=== PATIENT | female | born 1990 | race Two or more races ===

== ENCOUNTER 2019-08-18 17:13 | Observation (INO) | payer MEDICAID ==
[~2019-08-18] VITALS: Ht 160 cm; Wt 95.7 kg
[2019-08-18 17:49] VITALS: BP 140/83
[2019-08-18 18:45] LABS: BASOPHILS % (AUTO) 0.8 % (0.0-2.0); EOSINOPHILS % (AUTO) 0.2 % (1.0-6.0); HEMATOCRIT 38.4 % (36-46); HEMOGLOBIN 13.1 g/dL (12.0-16.0); LYMPHOCYTES # (AUTO) 2.5 K/uL (1.0-4.8); LYMPHOCYTES % (AUTO) 22.5 % (22.0-44.0); MEAN CORPUSCULAR HEMOGLOBIN 30.2 pg (26.0-34.0); MEAN CORPUSCULAR HGB CONC 34.1 G/dL (31.0-37.0); MEAN CORPUSCULAR VOLUME 89 fL (80-100); MONOCYTES # (AUTO) 0.8 K/uL (0.1-1.0); MONOCYTES % (AUTO) 7.5 % (2.0-9.0); NEUTROPHILS # (AUTO) 7.6 K/uL (1.8-7.7); PLATELET COUNT (AUTO)-OB 270 K/uL (150-450); RED BLOOD CELL COUNT(AUTO) 4.34 MIL/uL (4.00-5.20); RED CELL DISTRIBUTION WIDTH 14.8 % (11.5-14.5)
== END 2019-08-18 22:55 | disposition home or self-care (01) ==
LOC: 4S 17:13
PROVIDERS: ADMIT Obstetrics & Gynecology Obstetrics; ATTEND Obstetrics & Gynecology Obstetrics
DX: O26.893 Other specified pregnancy related conditions, third trimester (principal); R10.30 Lower abdominal pain, unspecified; Z3A.40 40 weeks gestation of pregnancy
CPT/HCPCS: 36415; 59025; 76805; 81002; 85025; 86592; 86762; 86901; 87340; G0378

== ENCOUNTER 2019-08-21 14:23 | Observation (INO) | payer MEDICAID ==
[~2019-08-21] VITALS: Ht 160 cm; Wt 88.5 kg
[2019-08-21 15:14] VITALS: BP 128/70
== END 2019-08-21 18:15 | disposition home or self-care (01) ==
LOC: 4S 14:23
PROVIDERS: ADMIT Obstetrics & Gynecology; ATTEND Obstetrics & Gynecology
DX: O26.893 Other specified pregnancy related conditions, third trimester (principal); R10.30 Lower abdominal pain, unspecified; Z79.899 Other long term (current) drug therapy; Z3A.41 41 weeks gestation of pregnancy
CPT/HCPCS: 59025; 76805; 80307 ×8; 81001; G0378

== ENCOUNTER 2019-08-24 15:15 | Observation (INO) | payer MEDICAID ==
[~2019-08-24] VITALS: Ht 160 cm; Wt 95.3 kg
== END 2019-08-24 17:20 | disposition home or self-care (01) ==
LOC: 4S 15:15
PROVIDERS: ADMIT Obstetrics & Gynecology; ATTEND Obstetrics & Gynecology
DX: Z34.83 Encounter for supervision of other normal pregnancy, third trimester (principal); Z3A.41 41 weeks gestation of pregnancy
CPT/HCPCS: 59025; 81001; G0378

== ENCOUNTER 2019-08-26 08:35 | Inpatient (IN) | payer MEDICAID ==
[~2019-08-26] VITALS: Ht 160 cm; Wt 95.7 kg
[2019-08-26] MEDS ORDERED: RINGERS SOLUTION,LACTATED 1,000 ML IV SCH (08:48)
[2019-08-26] MEDS ORDERED: RINGERS SOLUTION,LACTATED 1,000 ML IV PRN (08:48)
[2019-08-26] MEDS ORDERED: OXYTOCIN 30 UNITS/LACT RINGERS 500 ML IV ONE ×2 (08:48→11:18)
[2019-08-26] MEDS ORDERED: CITRIC ACID/SODIUM CITRATE 30 ML SOLUTION UDCUP PO PRN (09:00)
[2019-08-26] MEDS ORDERED: LIDOCAINE/PF 1% 30 ML VIAL INJ PRN ×2 (09:00→11:30)
[2019-08-26] MEDS ORDERED: FentaNYL CITRATE-PF 100 MCG/2 ML VIAL IVP PRN (09:00)
[2019-08-26] MEDS ORDERED: METHYLERGONOVINE MALEATE 0.2 MG/ML VIAL IM PRN (09:00)
[2019-08-26] MEDS ORDERED: METOCLOPRAMIDE HCL 5 MG/ML 2 ML VIAL IVP PRN (09:00)
[2019-08-26 09:21] VITALS: BP 143/87
[2019-08-26 09:29] LABS: BASOPHILS % (AUTO) 0.5 % (0.0-2.0); EOSINOPHILS % (AUTO) 0.1 % (1.0-6.0); HEMATOCRIT 39.4 % (36-46); HEMOGLOBIN 13.1 g/dL (12.0-16.0); LYMPHOCYTES # (AUTO) 1.8 K/uL (1.0-4.8); LYMPHOCYTES % (AUTO) 13.3 % (22.0-44.0); MEAN CORPUSCULAR HEMOGLOBIN 29.7 pg (26.0-34.0); MEAN CORPUSCULAR HGB CONC 33.3 G/dL (31.0-37.0); MEAN CORPUSCULAR VOLUME 89 fL (80-100); NEUTROPHILS # (AUTO) 10.9 K/uL (1.8-7.7); NEUTROPHILS % (AUTO) 79.1 % (40.0-70.0); PLATELET COUNT (AUTO) 241 K/uL (150-450); RED BLOOD CELL COUNT(AUTO) 4.43 MIL/uL (4.00-5.20); RED CELL DISTRIBUTION WIDTH 14.7 % (11.5-14.5)
[2019-08-26] MEDS ORDERED: AMPICILLIN SODIUM 2 GM/NS 100 ML IV ONE (09:30)
[2019-08-26] MEDS ORDERED: PNV1TABL54 PO (09:41)
[2019-08-26] MEDS ORDERED: OxyCODONE HCL/ACETAMINOPHEN 5-325 MG TABLET PO PRN ×2 (11:30)
[2019-08-26] MEDS ORDERED: BENZOCAINE 20%/MENTHOL 56 GM SPRAY CANISTER TP PRN (11:30)
[2019-08-26] MEDS ORDERED: LANOLIN 7 GM OINTMENT TP PRN (11:30)
[2019-08-26] MEDS ORDERED: GLYCERIN/WITCH HAZEL LEAF 40 PADS JAR TP PRN (11:30)
[2019-08-26] MEDS ORDERED: IBUPROFEN 800 MG TABLET PO PRN (11:30)
[2019-08-26] MEDS ORDERED: MAGNESIUM HYDROXIDE SUSPENSION 30 ML UDCUP PO PRN (11:30)
[2019-08-26] MEDS ORDERED: AMPICILLIN SODIUM 1 GM/NS 50 ML IV SCH (13:30)
[2019-08-26] MEDS ORDERED: OXYGEN THERAPY IH SCH (20:00)
[2019-08-27 07:14] LABS: BASOPHILS % (AUTO) 0.4 % (0.0-2.0); EOSINOPHILS % (AUTO) 0.4 % (1.0-6.0); HEMATOCRIT 38.5 % (36-46); HEMOGLOBIN 12.8 g/dL (12.0-16.0); LYMPHOCYTES # (AUTO) 3.1 K/uL (1.0-4.8); LYMPHOCYTES % (AUTO) 21.9 % (22.0-44.0); MEAN CORPUSCULAR HEMOGLOBIN 29.8 pg (26.0-34.0); MEAN CORPUSCULAR HGB CONC 33.3 G/dL (31.0-37.0); MEAN CORPUSCULAR VOLUME 90 fL (80-100); MONOCYTES # (AUTO) 1.2 K/uL (0.1-1.0); MONOCYTES % (AUTO) 8.4 % (2.0-9.0); NEUTROPHILS # (AUTO) 9.8 K/uL (1.8-7.7); NEUTROPHILS % (AUTO) 68.9 % (40.0-70.0); PLATELET COUNT (AUTO)-OB 228 K/uL (150-450); RED BLOOD CELL COUNT(AUTO) 4.29 MIL/uL (4.00-5.20)
[2019-08-28] MEDS ORDERED: IBUP-2070 PO (09:48)
[2019-08-28] MEDS ORDERED: DOCU-275 PO (09:48)
== END 2019-08-28 13:25 | disposition home or self-care (01) | DRG 560 ==
LOC: OBSVTOIN 08:35 → 4S 08:35
PROVIDERS: ADMIT Obstetrics & Gynecology; ATTEND Obstetrics & Gynecology
PROC: 10E0XZZ Delivery of Products of Conception, External Approach (ICD-10-PCS; principal; 2019-08-26)
DX: O75.2 Pyrexia during labor, not elsewhere classified (principal); Z20.828 Contact with and (suspected) exposure to other viral communicable diseases; Z37.0 Single live birth; Z3A.42 42 weeks gestation of pregnancy
CPT/HCPCS: 80307; 86850; 86900; 86901; 87635; J2590; J3490